=== PATIENT | male | born 1950 ===

== ENCOUNTER 2018-12-30 05:58 | Day surgery (SDC) | payer OTHER, MEDICARE ==
[2018-12-25 14:51] VITALS: BMI 33.0
[2018-12-30] MEDS ORDERED: Lactated Ringer's 1,000 ML IV ONE (07:00)
--- NOTE | 2018-12-30 07:44 | CP.SDSHP ---
Same Day Surgery H & P - History Proposed Procedure: Flexible bronchoscopy with biopsy Pre-Op Diagnosis: Right upper lobe mass - Previous Medical/Surgical History Pulmonary: Cough/URI (cough x 3 weeks) Pain: 0. No Pain Previous Surgical History: cystoscopy, right inguinal hernia repair - Allergies Allergies: Allergies No Known Allergies Allergy (Verified 12/30/18 06:33) - Current Medications Current Medications: none - Physical Exam General Appearance: well nourished, well developed Vital Signs: Vital Signs 12/30/18 12/30/18 06:43 06:46 Temperature 98 F Pulse Rate 69 69 Respiratory 18 Rate Blood Pressure 130/80 O2 Sat by Pulse 97 Oximetry Mental Status: Alert & Oriented x3 Neuro: WNL Heart: WNL Lungs: WNL GI: WNL - Impression Impression: right upper lobe mass suspicious for neoplasm Pt. Evaluated Today:Candidate for Anesthesia & Procedure: Yes - Date & Time Date: 12/30/18 Time: 07:47 Short Stay Discharge - Short Stay Discharge Admitting Diagnosis/Reason for Visit: R91.8 Disposition: HOME/ ROUTINE
[2018-12-30] MEDS ORDERED: EPINEPHrine 1 mg/ml (1:1000) Inj ONE (07:53)
[2018-12-30] MEDS ORDERED: Sodium Chloride 0.9% 30 ML IV ONE (07:53)
[2018-12-30] MEDS ORDERED: Lidocaine 1% Inj (20ml) ONE (07:54)
[2018-12-30] MEDS ORDERED: Lidocaine 2% Jelly (5 ml) TOP ONE (07:54)
[2018-12-30] MEDS ORDERED: Midazolam 2 MG/2 ML VIAL ONE (08:02)
[2018-12-30] MEDS ORDERED: Etomidate 20 mg/10ml Inj IV ONE (08:02)
[2018-12-30] MEDS ORDERED: Propofol 10 mg/ml Inj (20 ML) ONE (08:02)
[2018-12-30] MEDS ORDERED: Sodium Chloride 0.9% Inj (10mL) IV ONE (08:35)
[2018-12-30] MEDS ORDERED: Lactated Ringer's 1,000 ML IV SCH (09:15)
--- NOTE | 2018-12-30 10:43 | RAD ---
Date of service: 12/30/2018 HISTORY: post procedure COMPARISON: Frontal chest radiograph 06/25/[address] 12/24/2018. FINDINGS: LUNGS: No pneumothorax or infiltrate bilaterally. No pleural effusion appreciable in this single frontal chest radiograph. Right suprahilar/medial apical mass reiterated. PLEURA: As above. CARDIOVASCULAR: Calcific atherosclerotic changes are seen related to the thoracic aorta. Normal cardiac size. No pulmonary vascular congestion. OSSEOUS STRUCTURES: No significant abnormalities. VISUALIZED UPPER ABDOMEN: Normal. OTHER FINDINGS: None. IMPRESSION: No pneumothorax, infiltrate or pleural effusion bilaterally. Right suprahilar/medial apical mass reiterated.
[2018-12-30 12:51] VITALS: BP 135/85
[2018-12-30 12:53] VITALS: PULSE 75; RESP 18; TEMP 97.9; O2SAT 96
--- NOTE | 2018-12-30 14:24 | RAD ---
Date of service: 12/30/2018 PROCEDURE: Intraoperative Fluoroscopy. HISTORY: BRONCHOSCOPY (RUL) FINDINGS: Fluoroscopic assistance was provided for bronchoscopy. Please refer to the operative report from ERMELINDA Vásquez. Total fluoroscopic time (continuous mode) utilized during the procedure 77.2 seconds. Total exam DLP: 11.55 (mGy).
== END 2018-12-30 13:10 | disposition home or self-care (01) ==
LOC: H.OPSURG 05:58
PROVIDERS: ATTEND Internal Medicine Pulmonary Disease
DX: R91.8 Other nonspecific abnormal finding of lung field (principal)
CPT/HCPCS: 31622; 71045; 87015; 87070; 87101; 87116; 87206; 88104; 88305; 94660; J0171; J2001; J2250; J2704; J7120

== ENCOUNTER 2019-01-05 06:23 | Day surgery (SDC) | payer OTHER, MEDICARE ==
[2018-12-25 14:51] VITALS: BMI 33.0
[2019-01-05] MEDS ORDERED: Lactated Ringer's 1,000 ML IV ONE ×2 (07:32→09:30)
[2019-01-05] MEDS ORDERED: Midazolam 2 MG/2 ML VIAL ONE ×2 (09:06→09:15)
[2019-01-05] MEDS ORDERED: Lidocaine 1% Inj (20ml) ONE (09:09)
--- NOTE | 2019-01-05 09:31 | CP.SDSHP ---
Same Day Surgery H & P - History Proposed Procedure: CT guided right lung mass biopsy Pre-Op Diagnosis: LUng cancer - Allergies Allergies: Allergies No Known Allergies Allergy (Verified 01/05/19 07:30) - Physical Exam Vital Signs: Vital Signs 01/05/19 01/05/19 07:24 07:27 Temperature 98 F Pulse Rate 61 61 Respiratory 18 Rate Blood Pressure 141/81 O2 Sat by Pulse 98 Oximetry Mental Status: Alert & Oriented x3 Neuro: WNL Heart: WNL Lungs: WNL - Impression Impression: Pt with a right upper lobe mass. Plan CT guided core biopsy. Informed consent obtained. Pt. Evaluated Today:Candidate for Anesthesia & Procedure: Yes (ASA 3 Malampati 3) - Date & Time Date: 01/05/19 Time: 09:00 Short Stay Discharge - Short Stay Discharge Admitting Diagnosis/Reason for Visit: R91.8 Disposition: HOME/ ROUTINE
--- NOTE | 2019-01-05 09:34 | PCM.SURG1 ---
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 Post-Operative Diagnosis: Lung cancer Operation Performed: CT guided core biopsy of right lung mass. Specimen/Specimens Removed: 20 g core x 3 Estimated Blood Loss: EBL {In ML}: 1 Blood Products Given: N/A Drains Used: No Drains Post-Op Condition: Good Date of Surgery/Procedure: 01/05/19 Time of Surgery/Procedure: 09:30
[2019-01-05] MEDS ORDERED: Morphine 4 MG/ML VIAL IVP PRN (09:42)
--- NOTE | 2019-01-05 10:53 | RAD ---
Date of service: 01/05/2019 HISTORY: Status post right lung mass biopsy. COMPARISON: 12/30/2018 FINDINGS: LUNGS: The lungs are well inflated. There is redemonstration of a right suprahilar mass. PLEURA: No pleural effusions or pneumothorax. CARDIOVASCULAR: The heart is normal in size. No aortic atherosclerotic calcifications present. OSSEOUS STRUCTURES: Within normal limits for the patient's age. VISUALIZED UPPER ABDOMEN: Normal. OTHER FINDINGS: None. IMPRESSION: No acute findings. No significant interval change.
[2019-01-05 12:31] VITALS: RESP 18
[2019-01-05 12:32] VITALS: O2SAT 98
[2019-01-05 12:34] VITALS: BP 143/87; PULSE 70; TEMP 98.7
--- NOTE | 2019-01-06 12:15 | CT ---
PROCEDURE: Date of procedure: 01/05/2019 Procedure: 1. CT-guided lung mass biopsy, CPT [address] Guidance for biopsy, [address] Radiation: 1010.93 MGy-cm Medications: The patient was sedated by anesthesiologist along with physiologic monitoring. HISTORY: Right upper lobe lung mass TECHNIQUE: Following informed consent, the Pt's chest was marked. The Pt was placed supine on the CT table and procedure time out was performed. A noncontrast CT scan was performed. Noncontrast CT scan confirmed the presence of a upper lobe mass. A skin localizer was placed on the patient's right chest and a repeat CT scan was performed. The skin was marked, prepped, and draped in the usual sterile fashion. After the skin was anesthetized with lidocaine and the patient sedated by the anesthesiologist, a 20 gauge core needle was advanced percutaneously under direct CT guidance into the mass. Upon confirmation of needle position, two 20-gauge core specimens were obtained and sent for routine pathology. The needle was removed and a xeroform dressing was applied. A post biopsy CT scan showed no pneumothorax. IMPRESSION: CT guided core biopsy right lung mass.
== END 2019-01-05 13:30 | disposition home or self-care (01) ==
LOC: H.OPSURG 06:23
PROVIDERS: ATTEND Internal Medicine Pulmonary Disease
DX: C34.91 Malignant neoplasm of unspecified part of right bronchus or lung (principal)
CPT/HCPCS: 32405; 71045; 88305; J2250; J3010; J7120